=== PATIENT | female | born 1950 | race Caucasian/White ===

== ENCOUNTER 2019-11-22 16:47 | Emergency (ER) | payer MEDICARE, MEDICAID ==
[~2019-11-22] VITALS: Ht 154.9 cm; Wt 104.5 kg
[2019-11-22 16:54] VITALS: BP 133/69
[2019-11-22] MEDS ORDERED: SULF1TAB49 PO (17:32)
== END 2019-11-22 17:49 | disposition home or self-care (01) ==
LOC: ER 16:49
DX: L02.31 Cutaneous abscess of buttock (principal); E78.00 Pure hypercholesterolemia, unspecified; F41.9 Anxiety disorder, unspecified; I50.9 Heart failure, unspecified; Z79.899 Other long term (current) drug therapy
CPT/HCPCS: 99283

== ENCOUNTER 2023-02-02 08:00 | Outpatient (CLI) | payer MEDICARE, MEDICAID ==
[2023-02-02 15:45] LABS: BASOPHILS % (AUTO) 0.1 % (0-1); EOSINOPHILS % (AUTO) 0 % (0-6); LYMPHOCYTES # (AUTO) 0.6 X10'3 (1.1-4.8); LYMPHOCYTES % (AUTO) 5.1 % (21-51); MEAN CORPUSCULAR HEMOGLOBIN 31.8 PG (27.0-31.0); MEAN CORPUSCULAR HGB CONC 33.4 g/dL (33.0-36.5); MEAN CORPUSCULAR VOLUME 95.3 FL (78-98); MEAN PLATELET VOLUME 7.5 FL (7.4-10.4); MONOCYTES % (AUTO) 0.4 % (2-12); NEUTROPHILS # (AUTO) 10.5 X10'3 (1.8-7.7); NEUTROPHILS % (AUTO) 94.4 % (42-75); PRE OP HEMATOCRIT 43.9 % (35.0-45.0); PRE OP HEMOGLOBIN 14.6 g/dL (12.0-16.0); PRE OP PLATELET COUNT 250 X10'3 (140-440); RED CELL DISTRIBUTION WIDTH 16.8 % (11.5-14.5)
[2023-02-02 16:03] LABS: ALBUMIN 3.2 G/DL (3.4-5.0); ALBUMIN/GLOBULIN RATIO 0.7 (1.1-1.5); ALKALINE PHOSPHATASE 161 IU/L (46-116); BLOOD UREA NITROGEN 12 MG/DL (7-18); BUN/CREATININE RATIO 14.6 (10.0-20.0); CALCIUM 9.2 MG/DL (8.5-10.1); CHLORIDE 100 MMOL/L (99-107); CREATININE 0.82 MG/DL (0.40-0.90); PRE OP ALT 17 U/L (30-65); PRE OP ANION GAP 7 (8-16); PRE OP AST 18 U/L (10-37); PRE OP BILIRUB, TOTAL 0.5 MG/DL (0.0-1.0); PRE OP POTASSIUM 4.3 MMOL/L (3.4-5.1); PRE OP SODIUM 136 MMOL/L (135-145); TOTAL CARBON DIOXIDE 29.2 MMOL/L (24-32); TOTAL PROTEIN 7.6 G/DL (6.4-8.2); eGFR 69 ML/MIN
[2023-02-02 16:08] LABS: PRE OP GLUCOSE 375 MG/DL (70-104)
[2023-02-02] MEDS ORDERED: TIOT4MIS2 INH (16:38)
[2023-02-02] MEDS ORDERED: LORA-268 (16:38)
[2023-02-02] MEDS ORDERED: POTA8TAB69 (16:38)
[2023-02-02] MEDS ORDERED: FURO40TA4 PO (16:38)
[2023-02-02] MEDS ORDERED: ATOR20TA66 PO (16:38)
[2023-02-02] MEDS ORDERED: DULA0.75 SQ (16:38)
[2023-02-02] MEDS ORDERED: DOCU-22 PO (16:38)
[2023-02-02] MEDS ORDERED: ALBU18HF2 (16:38)
[2023-02-02] MEDS ORDERED: ENAL-76 PO (16:38)
[2023-02-02] MEDS ORDERED: MONT-40 PO (16:39)
[2023-02-02] MEDS ORDERED: FAMO20TA8 PO (16:39)
[2023-02-02] MEDS ORDERED: FLUT16SP26 BOTHNARES (16:39)
[2023-02-02] MEDS ORDERED: ASPI-1397 PO (16:39)
[2023-02-02] MEDS ORDERED: TRAM50TA2 PO (16:39)
[2023-02-02 17:20] LABS: HEMOGLOBIN A1C 8.4 % (4.5-6.2)
== END 2023-02-02 23:00 | disposition home or self-care (01) ==
LOC: LAB 08:00 → EDSTATUS 02-06 13:15
PROVIDERS: ATTEND Podiatrist Foot & Ankle Surgery
DX: Z01.818 Encounter for other preprocedural examination (principal); M20.42 Other hammer toe(s) (acquired), left foot; M21.6X2 Other acquired deformities of left foot; J44.9 Chronic obstructive pulmonary disease, unspecified; F17.210 Nicotine dependence, cigarettes, uncomplicated; G43.909 Migraine, unspecified, not intractable, without status migrainosus; Z79.899 Other long term (current) drug therapy; Z90.710 Acquired absence of both cervix and uterus; Z98.890 Other specified postprocedural states; Z88.0 Allergy status to penicillin; Z88.6 Allergy status to analgesic agent; Z88.8 Allergy status to other drugs, medicaments and biological substances
CPT/HCPCS: 36415; 80053; 83036; 85025

== ENCOUNTER 2025-01-02 05:26 | Day surgery (SDC) | payer MEDICARE, MEDICAID ==
[2024-12-29 15:26] LABS: ALBUMIN 3.2 G/DL (3.4-5.0); ALKALINE PHOSPHATASE 139 IU/L (46-116); BLOOD UREA NITROGEN 16 MG/DL (7-18); BUN/CREATININE RATIO 28.1 (10.0-20.0); CALCIUM 8.9 MG/DL (8.5-10.1); CHLORIDE 103 MMOL/L (99-107); CREATININE 0.57 MG/DL (0.40-0.90); PRE OP ALT 23 U/L (30-65); PRE OP ANION GAP 5 (8-16); PRE OP AST 19 U/L (10-37); PRE OP BILIRUB, TOTAL 0.8 MG/DL (0.0-1.0); PRE OP GLUCOSE 106 MG/DL (70-104); PRE OP SODIUM 140 MMOL/L (135-145); TOTAL PROTEIN 6.4 G/DL (6.4-8.2); eGFR > 90 ML/MIN
[2024-12-29 15:30] LABS: BASOPHILS % (AUTO) 0.5 % (0-1); EOSINOPHILS # (AUTO) 0.1 X10'3 (0-0.9); EOSINOPHILS % (AUTO) 1.3 % (0-6); LYMPHOCYTES # (AUTO) 1.9 X10'3 (1.1-4.8); LYMPHOCYTES % (AUTO) 32.1 % (21-51); MEAN CORPUSCULAR HEMOGLOBIN 32.4 PG (27.0-31.0); MEAN CORPUSCULAR HGB CONC 33.7 g/dL (33.0-36.5); MEAN CORPUSCULAR VOLUME 95.9 FL (78-98); MEAN PLATELET VOLUME 7.9 FL (7.4-10.4); MONOCYTES # (AUTO) 0.5 X10'3 (0-0.9); MONOCYTES % (AUTO) 7.9 % (2-12); NEUTROPHILS # (AUTO) 3.5 X10'3 (1.8-7.7); NEUTROPHILS % (AUTO) 58.2 % (42-75); PRE OP HEMATOCRIT 43.4 % (35.0-45.0); PRE OP HEMOGLOBIN 14.7 g/dL (12.0-16.0); PRE OP PLATELET COUNT 177 X10'3 (140-440); PRE OP WHITE BLOOD COUNT 5.9 10'3 (4.8-10.8); RED BLOOD COUNT 4.53 X10'6 (4.20-5.60); RED CELL DISTRIBUTION WIDTH 14.5 % (11.5-14.5)
[2025-01-02] VITALS (8 sets, daily range): BP systolic 82–133; BP diastolic 41–74; PULSE 67–84; RESP 12–16; TEMP 98; O2SAT 92–100
[~2025-01-02] VITALS: Ht 154.9 cm; Wt 69.9 kg
[~2025-01-02 05:26] MED LIST: ALBU18HF2; ASPI-1397 PO; ATOR20TA66 PO; CHOL100046 PO; DOCU-22 PO; DULA0.75 SQ; DUTA0.5C36 PO; ENAL-76 PO; FLUT1BLS4 INH; FURO40TA4 PO; HYDR-3972 PO; ISOS30TA84 PO; LORA10TA7 PO; MONT-40 PO; POTA8TAB69 PO; TIZA-189 PO
[2025-01-02] MEDS: clindamycin 600mg/D5W 50ml 50 ML IV ONE (05:47)
[2025-01-02] MEDS: ringers solution, lacted 1,000 ML IV SCH (05:56)
[2025-01-02] MEDS: famotidine 20mg tablet PO ONE (05:56)
[2025-01-02] MEDS ORDERED: LIDOcaine 2% (20mg/ml) 5ml vial ONE ×2 (06:44→08:34)
[2025-01-02] MEDS ORDERED: BUPIVAcaine/PF 2.5mg/ml (0.25%) 10ml vial ONE (06:44)
[2025-01-02] MEDS ORDERED: BUPIVAcaine 2.5mg/ml inj 50ml vial (contains preservative) ONE (06:57)
[2025-01-02] MEDS: BUPIVAcaine/PF 2.5 mg/ml (0.25%) 30ml vial IJ ONE (07:51)
[2025-01-02] MEDS ORDERED: fentaNYL/PF 50MCG/1 ML 2ML syringe ONE (08:15)
[2025-01-02] MEDS ORDERED: MIDAZolam 1 MG/ML 5ML VIAL ONE (08:15)
[2025-01-02] MEDS ORDERED: propofol inj 20 ML IV ONE (08:34)
== END 2025-01-02 09:39 | disposition home or self-care (01) ==
LOC: PAS 05:26
PROVIDERS: ATTEND Orthopaedic Surgery Hand Surgery
DX: M72.0 Palmar fascial fibromatosis [Dupuytren] (principal); G89.4 Chronic pain syndrome; I50.9 Heart failure, unspecified; E78.5 Hyperlipidemia, unspecified; N17.0 Acute kidney failure with tubular necrosis; E11.9 Type 2 diabetes mellitus without complications; Z79.899 Other long term (current) drug therapy; Z98.890 Other specified postprocedural states; J44.9 Chronic obstructive pulmonary disease, unspecified; F17.210 Nicotine dependence, cigarettes, uncomplicated; F41.9 Anxiety disorder, unspecified; F32.A Depression, unspecified; F43.10 Post-traumatic stress disorder, unspecified; Z88.0 Allergy status to penicillin; Z88.6 Allergy status to analgesic agent; Z88.8 Allergy status to other drugs, medicaments and biological substances
CPT/HCPCS: 26121; 36415; 80053; 82948; 85025; 93005; A4215; A4618; A6222; A6402; A6449; A7000; J2003; J2250; J2704; J3010; J3490; J7030; J7120; Z7506; Z7512; Z7610